=== PATIENT | female | born 1950 | race Caucasian/White ===

== ENCOUNTER → 2024-04-23 | Outpatient (CLI) | payer MEDICARE, BC ==
[2024-04-23 12:01] LABS: Prothrombin Time 10.9 sec (10.0-12.5)
[2024-04-23 12:08] LABS: Partial Thromboplastin Time 21.6 sec (22.0-30.0)
[2024-04-23 15:17] LABS: ALT 28 U/L (8-44); AST 24 U/L (13-35); Albumin 4.5 g/dL (3.8-4.9); Albumin/Globulin Ratio 1.73 Ratio (1.60-3.17); Alkaline Phosphatase 69 U/L (41-126); BUN/Creat Ratio 26.14 Ratio (12.00-20.00); Blood Urea Nitrogen 18.3 mg/dL (9.0-27.0); Calcium 9.3 mg/dL (8.7-10.3); Carbon Dioxide 25.3 mmol/L (21.6-31.8); Chloride 107 mmol/L (96-109); Globulin 2.6 g/dL (1.6-3.3); Glucose 90 mg/dL (70-110); Potassium 4.4 mmol/L (3.5-5.5); Sodium 143 mmol/L (135-145); Total Bilirubin 0.8 mg/dL (0.3-1.2); Total Protein 7.1 g/dL (6.2-8.2)
[2024-04-23 16:06] LABS: HCT 44.3 % (37.2-46.3); HGB 14.2 g/dL (12.0-15.0); MCH 29.4 pg (27.0-32.0); MCHC 32.1 g/dL (32.0-37.0); MCV 91.7 FL (80.0-97.0); Mean Platelet Volume 10.2 FL (9.5-12.2); NRBC Per 100 WBC 0 X 10*3/uL (0.00-0.01); Platelet Count 194 X 10*3/uL (140-440); RBC 4.83 X 10*6/uL (4.10-5.20); WBC 6.29 X 10*3/uL (4.50-10.00)
== END | disposition home or self-care (01) ==
LOC: LABPAT 10:34
PROVIDERS: ATTEND Orthopaedic Surgery
DX: Z22.322 Carrier or suspected carrier of Methicillin resistant Staphylococcus aureus
CPT/HCPCS: 36415; 80053; 83036; 85027; 85610; 85730; 86850; 86900; 86901; 87070

== ENCOUNTER 2024-05-02 09:51 | Inpatient (IN) | payer MEDICARE, BC ==
[2024-04-26 15:44] VITALS: BMI 45.1
[~2024-05-02 09:51] MED LIST: ONDANSETRON 4 MG/2 ML VIAL IVP PRN; TRANEXAMIC 1,000 MG/100ML-NACL 1,000 MG in SALINE 1 100ML.BAG IV PRN; TRANEXAMIC 1,000 MG/100ML-NACL 1,000 MG in SALINE 1 100ML.BAG IVPB PRN
[2024-05-02 11:20] LABS: Glucose,Whole Blood 112 mg/dL (70-110)
[2024-05-02] MEDS: ACETAMINOPHEN TAB 500 MG TAB PO PRN (11:21)
[2024-05-02] MEDS: DOCUSATE 100 MG CAP PO PRN (11:22)
[2024-05-02] MEDS: oxyCODONE ER 10 MG TAB.ER.12H PO PRN (11:22)
[2024-05-02] MEDS: ONDANSETRON 4 MG/2 ML VIAL IVP ONE (11:25)
[2024-05-02] MEDS: FAMOTIDINE 20 MG/2 ML VIAL IVP PRN (11:25)
[2024-05-02] MEDS: LACTATED RINGERS 1,000 ML IV SCH (11:26)
[2024-05-02] MEDS: KETOROLAC 15 MG/ML 1 ML VIAL IVP PRN (11:26)
[2024-05-02] MEDS: DEXAMETHASONE SOD PHOSPHATE 10 MG/ML 1 ML VIAL IV PRN (11:26)
[2024-05-02] MEDS: IV FLUID CONTINUATION 1,000 ML IV ONE ×2 (11:46→16:02)
[2024-05-02] MEDS: MIDAZOLAM 2 MG/2 ML VIAL IV ONE (11:50)
--- NOTE | 2024-05-02 12:02 | P.ANPRN ---
Procedure Note - Anesthesia - Nerve Block Performed Right Yobani Single Time Out Performed: Yes Date of Procedure: 05/02/24 Procedure Start Time: 11:49 Procedure Stop Time: 11:54 Location of Patient: PreOp Indication: Acute Post-Operative Pain, Analgesia, Requested by Surgeon Sedation Type: Sedate with meaningful contact maintained Preparation: Sterile Prep Position: Supine Catheter: None Needle Types: Pajunk Needle Gauge: 21 Ultrasound used to visualize needle placement: Yes Ultrasound used to observe medication spread: Yes Injectate: 0.5% Ropivacaine (see comment for volume) (Ropiv 20ml+Decadron 4mg. attemptX1.) Blood Aspirated: No Pain Paresthesia on Injection Noted: No Resistance on Injection: Normal Image Stored and Saved: Yes Events: Uneventful and Well Tolerated
[2024-05-02] MEDS ORDERED: NEOSTIGMINE 1 MG/ML 10 ML VIAL ONE (12:31)
[2024-05-02] MEDS ORDERED: DEXAMETHASONE SOD PHOSPHATE 4 MG/ML 1 ML VIAL ONE (12:31)
[2024-05-02] MEDS ORDERED: PROPOFOL 10 MG/ML 20 ML VIAL IV ONE (12:31)
[2024-05-02] MEDS ORDERED: fentaNYL (PF) 50 MCG/ML 2 ML AMP ONE (12:31)
[2024-05-02] MEDS ORDERED: SUCCINYLCHOLINE CHLORIDE 200 MG/10 ML VIAL IV ONE (12:31)
[2024-05-02] MEDS ORDERED: ROCURONIUM 10 MG/ML (5 ML VIAL) IV ONE (12:31)
[2024-05-02] MEDS ORDERED: GLYCOPYRROLATE 0.2 MG/ML 2 ML VIAL ONE (12:31)
[2024-05-02] MEDS ORDERED: TRANEXAMIC 1,000 MG/100ML-NACL PREMIX BAG ONE (12:31)
[2024-05-02] MEDS ORDERED: ROPIVACAINE 5 MG/ML 30 ML VIAL ONE (12:31)
[2024-05-02] MEDS ORDERED: LIDOCAINE 1% INJ 10MG/ML (20 ML MDV) ONE (12:31)
[2024-05-02] MEDS ORDERED: PHENYLEPHRINE 10 MG/ML VIAL ONE (12:31)
[2024-05-02] MEDS: ceFAZolin 3 GM in SODIUM CHLORIDE 0.9% 100 ML IVPB PRN (12:36)
[2024-05-02] MEDS: ROPIVACAINE/EPI/CLONIDINE/KET 50 ML SYRINGE MISCELLANE PRN (13:17)
--- NOTE | 2024-05-02 14:35 | P.OP ---
Date of Procedure: 05/02/24 Preoperative Diagnosis: 1. Severe right hip osteoarthritis 2. BMI 44.8 Postoperative Diagnosis: same Procedure(s) Performed: 1. Right direct anterior total hip arthroplasty 2. Application of negative pressure incisional wound VAC right hip, incision measuring 15 cm, less than 50 cm Implants: 1. Dennis Trident II Acetabular Cup, Size #52 2. Dennis Insignia Size # 6 Femoral Stem, High Offset 3. Dual Mobility OD 42 mm, ID 28 mm, -4 mm neck Anesthesia: STARR, regional Surgeon: Ashish Roldan Lemon Grower #1: Edilberto Uribe Estimated Blood Loss (ml): 300 IV fluids (ml): 1,000 Pathology: none sent Condition: stable Disposition: PACU Indications for Procedure: patient is a very pleasant 73-year-old female with a medical history significant for having a BMI of over 40 who presented to my office with severe right hip and groin pain. Her x-rays showed moderate arthritis. She was sent for a diagnostic right hip injection under fluoroscopy and had almost complete resolution of her symptoms. She also has a history of lumbar spine degenerative disease. Due to her response to a diagnostic intra-articular right hip injection, her physical exam with severe pain with any attempts at passive range of motion her x-ray findings her hip pain seems to be mostly coming from arthritis in the hip joint. The patient requested proceeding with a total hip replacement. She understands that she may still have discomfort if some of her symptoms are related to her lumbar spine. I had a long discussion with the patient in the office on the potential risks and complications of an elective total hip replacement through a direct anterior approach. Risks discussed include, but are certainly not limited to, risks from anesthesia, superficial infection requiring local wound care or antibiotics, deep leticia-prosthetic joint infection and the treatment required to eradicate infection, intraoperative fracture, postoperative periprosthetic fracture, damage to local blood vessels or nerves particularly the lateral femoral cutaneous nerve, delayed wound healing requiring local wound care or possibly surgical debridement, hip dislocation, leg length discrepancy, soft tissue irritation around the total hip implant such as iliopsoas tendinitis or trochanteric bursitis, wear and osteolysis from the implants, squeaking or audible noises, groin pain, thigh pain, heterotopic ossification, stiffness, as eptic loosening of the implants, dissatisfaction with surgical outcome, need for revision surgery, DVT, PE, swelling of the operative extremity, acute coronary event, stroke, failure to thrive, and possibly loss of life or limb. The patient understands that while these are the most common complications after an elective hip replacement there are certainly other less common complications possible. They were given ample time to ask questions regarding the potential complications of a hip replacement. Following our discussion the patient provided their verbal and written consent to go forward with an elective total hip replacement. Operative Findings: Severe right hip osteoarthritis with complete cartilage loss in the superior femoral head and diffuse cartilage loss of the acetabulum. Description of Procedure: The patient was identified in the preoperative holding area and the correct hip was marked with my initials. I reviewed the procedure and consent with the patient. All of their questions were answered. The patient was then brought back into the operating room by anesthesia. While on the [facility] anesthesia was administered by the anesthesia team. Preoperative antibiotics and tranexamic acid were also given. After the patient was under anesthesia I examined their ankles to determine their preoperative leg length discrepancy. The skin over the anterior aspect of the hip was shaved to remove hair over the site of planned incision. Both feet and ankles were padded with webril and boots for the Ennice were applied. The patient was then carefully transferred onto the Ennice table. A perineal post was immediately placed. The arms were placed on arm holders and were well-padded. Both boots were secured to the spars on the Ennice table. The patient was positioned so that the pelvis was centered over the post. Nonsterile drapes were applied. A timeout was performed identifying the correct patient, operative extremity, and procedure. At this point fluoroscopy was brought in to take preoperative images of the pelvis and operative hip. Using the standing AP pelvis from the office as a template, a comparable image was obtained with fluoroscopy. A metallic bar was used to create a bi-ischial line for use as a reference to leg length adjustments during the procedure. Global offset was also measured on both the operative and nonoperative leg. Fluoroscopy was then brought out and a pre-scrub using a chlorhexidine scrub brush was performed. The operative limb was then prepped and draped in the standard sterile fashion. An anterior longitudinal incision was made lateral and distal to the ASIS. The skin and subcutaneous tissues were incised sharply. The underlying tensor fascia was identified and incised in its midportion. The fascia was dissected free from the underlying muscle and the muscle belly was retracted. A blunt tipped cobra retractor was placed over the superior neck under the muscle fibers of the gluteus minimus. The deep enveloping fascia of the tensor was incised. The anterior leash of vessels were then identified and cauterized. The fascia between the rectus and the capsule was then incised and the pre-capsular fat was excised. A second Cobra was placed inferior to the neck. The interval between the rectus and iliocapsularis and the hip capsule was developed and a retractor was placed carefully over the anterior rim of the acetabulum. A T-shaped anterior capsulotomy was performed. The superior capsular leaflet was left in place in the inferior capsular flap was excised. The Cobra retractors were placed intracapsularly. We then made a femoral neck osteotomy according to preoperative and intraoperative templating and confirmed the level of the osteotomy using fluoroscopic imaging. The femoral head was removed, passed off to the back table, and sized. The superior capsular flap was excised. Retractors were placed circumferentially exposing the acetabulum. We then circumferentially debrided the acetabulum free of labrum and osteophytes. The pulvinar was removed to fully visualize the cotyloid fossa. We then sequentially reamed to achieve peripheral fit and excellent bleeding subchondral bone. The socket was thoroughly irrigated. The acetabular component was impacted into the appropriate position using fluoroscopy to guide version, inclination, and depth of insertion taking care to have a comparable image of the AP pelvis to the standing image taken in the office. An excellent press-fit was achieved and final position was confirmed using fluoroscopy. The press fit was augmented with bony cancellus dome screws. The liner was then impacted into the socket. Attention was then turned to the femur. The remnant dorsal lateral capsule was excised. The short external rotators were visible and protected. A bone hook was used to confirm appropriate translation of the trochanter away from the acetabulum. The leg was then extended and adducted and the bone hook was used to elevate the femur for broaching. A box osteotome and blunt tipped canal sound was then utilized to gain access to the femoral canal. We then sequentially broached the femur in appropriate anteversion until excellent torsional stability was achieved. The neck cut was brought flush to the trial broach with a calcar planar. A trial neck and head were then placed onto the broach and the hip was atraumatically reduced under direct visualization. External rotation to 90 was performed to assess stability. Fluoroscopy was brought in. An AP and lateral fluoroscopic image of the proximal femur was obtained to assess position and fill of the trial broach. An AP of the pelvis was then obtained and matched to the preoperative image taken. A bi-ischial bar was then placed and measurements were taken to assess changes in length and offset. The hip was then carefully dislocated, the proximal femur was exposed, and the trial implants were removed. The wound and proximal femur was thoroughly irrigated using sterile saline and pulsatile lavage. The final femoral implant was dispensed and gently tapped into place generating an excellent press-fit. The trunnion was cleansed and the final head was tapped into place to engage the Faria taper. The acetabulum was irrigated and visualized to be free of debris. The hip was carefully reduced. Stability was checked clinically with external rotation to 90 and there was no evidence of instability. Final fluoroscopic images were taken. The wound was then thoroughly irrigated and soaked with a dilute Betadine rinse for 3 minutes. 3 L of sterile saline was irrigated through the wound using pulsatile lavage. Local anesthetic cocktail was injected into the soft tissues around the surgical f ield. The wound was then closed in layers. An incisional wound VAC was placed over the closed incision to help lower the risk of delayed wound healing and surgical site infection. After connecting the wound VAC to it's power source, there was an excellent seal. The drapes were taken down and the patient was carefully transferred off of the Ennice table. Following removal of the boots the leg lengths felt acceptable. The patient was then taken to recovery room having tolerated the procedure well. Edilberto Uribe PA-C was required as a skilled program support assistant due to the complexity of the procedure for patient positioning, draping, exposure, retraction, closure of wound and application of dressing. . PLAN: The patient can weight-bear as tolerated on the operative extremity. 2 doses of postoperative antibiotics. DVT prophylaxis with aspirin 81 mg twice a day based on preoperative risk stratification. Physical therapy for gait training.
[2024-05-02] MEDS ORDERED: ONDANSETRON 4 MG/2 ML VIAL IVP PRN (14:36)
[2024-05-02] MEDS ORDERED: NALOXONE 0.4 MG/ML 1 ML VIAL IV PRN (14:36)
[2024-05-02] MEDS ORDERED: HYDROcodone/APAP 5-325MG 1 EACH TAB PO PRN (14:36)
[2024-05-02] MEDS ORDERED: MAGNESIUM HYDROXIDE 2,400 MG/30 ML CUP PO PRN (14:36)
[2024-05-02] MEDS: HYDROmorphone 0.5 MG/0.5 ML SYRINGE IVP PRN (15:13)
--- NOTE | 2024-05-02 15:19 | FL ---
EXAMINATION TYPE: FL guidance operating room, XR Hip Limited RT DATE OF EXAM: 05/02/2024 2:32 PM COMPARISON: Pre Operative Images if available both CT/MRI or plain film CLINICAL INDICATION: Female, 73 years old with history of Rt Hip-Ant; TECHNIQUE: FL guidance operating room, XR Hip Limited RT, multiple fluoroscopic images provided for p rocedure. Total fluoroscopy time: 40.1 seconds Total submitted images to PACS: 9 DAP: [id number] mGym2 Gycm2 uGym2 cGycm2 or equivalent. FINDINGS: Fluoroscopic images during internal fixation/arthroplasty demonstrate fixation hardware in appropriat e position. Hardware appears intact. No immediate complication identified. IMPRESSION: 1. No evidence for intraoperative complication. 2. Please see the operative/procedural note for further details. [facility], , 05/02/2024 3:17 PM
[2024-05-02 15:57] LABS: Glucose,Whole Blood 189 mg/dL (70-110)
[2024-05-02 16:26] LABS: Glucose,Whole Blood 211 mg/dL (70-110)
[2024-05-02] MEDS ORDERED: LOPERAMIDE 2 MG CAP PO PRN (16:53)
[2024-05-02] MEDS ORDERED: DEXTROSE 50% SYRINGE 50 ML IVP PRN ×2 (17:01)
[2024-05-02] MEDS: SODIUM CHLORIDE 0.9% 1,000 ML IV SCH (17:05)
[2024-05-02] MEDS: INSULIN ASPART (NovoLOG) 100 UNIT/ML VIAL SQ SCH (17:32)
[2024-05-02] MEDS: HYDROcodone/APAP 10-325MG 1 EACH TAB PO PRN (17:44)
[2024-05-02 20:39] LABS: Glucose,Whole Blood 207 mg/dL (70-110)
[2024-05-02] MEDS: metFORMIN 500 MG TAB PO SCH (20:59)
[2024-05-02] MEDS: ATORVASTATIN 20 MG TAB PO SCH (20:59)
[2024-05-02] MEDS: SENNOSIDES-DOCUSATE SODIUM 1 EACH TAB PO SCH (20:59)
[2024-05-02] MEDS: MAGNESIUM OXIDE 400 MG TAB PO SCH (21:00)
[2024-05-02] MEDS: amLODIPine 10 MG TAB PO SCH (21:00)
[2024-05-02] MEDS ORDERED: TIMOLOL 0.5% OPHTH SOLN (PF) 0.2 ML DROPERETTE BOTH EYES SCH (21:00)
[2024-05-02] MEDS: CYCLOBENZAPRINE 10 MG TAB PO PRN (21:00)
[2024-05-02] MEDS: ASPIRIN 81 MG PO SCH ×2 (21:00→21:02)
[2024-05-02] MEDS: glipiZIDE 10 MG TAB PO SCH (21:00)
[2024-05-02] MEDS: ceFAZolin 3 GM in SODIUM CHLORIDE 0.9% 100 ML IVPB SCH (21:03)
[2024-05-02] MEDS: TIMOLOL 0.5% OPHTH DROPS 5 ML BTL BOTH EYES SCH (23:38)
--- NOTE | 2024-05-03 03:04 | CONS ---
CONSULTATION HISTORY OF PRESENT ILLNESS: A 73-year-old white female, history of hypertension, obesity, GERD, dyslipidemia, diabetes mellitus, breast cancer, deafness, was admitted for surgery for her right hip. She has some pain lifting her right leg out of bed. Otherwise, she is doing fine. She has been up to the bathroom already x1. ALLERGIES: Levaquin. PAST SURGICAL HISTORY: Cholecystectomy, hernia, bilateral knees, breast carcinoma, cyst on the liver. FAMILY HISTORY: Hypertension in the family. Never smoked. Not . REVIEW OF SYSTEMS: A 14-point review of systems otherwise negative. PHYSICAL EXAMINATION: VITAL SIGNS: Blood pressure 102/85. GENERAL: Alert, and oriented x3. HEENT: Normocephalic, atraumatic. NECK: Supple. CARDIAC: Regular rate and rhythm. LUNGS: Clear. ABDOMEN: Soft, nontender. EXTREMITIES: Right hip has a bandage on it. Some mild swelling and firmness below the wound. Continue current treatment. No chest pain or shortness of breath. Follow up in the next 24 to 48 hours. MMODL / IJN: [id number] /
[2024-05-03] MEDS: HYDROmorphone 0.5 MG/0.5 ML SYRINGE IVP PRN (04:21)
[2024-05-03 06:42] LABS: Glucose,Whole Blood 142 mg/dL (70-110)
[2024-05-03] MEDS ORDERED: NON FORMULARY DRUG (Ubidecarenone [Co Q-10] 400 MG Capsule) PO SCH (09:00)
--- NOTE | 2024-05-03 09:05 | P.PN ---
Subjective Progress Note Date: 05/03/24 Principal diagnosis: Status post right direct anterior total hip arthroplasty for right hip osteoarthritis on 05/02/[address] Roldan No acute events overnight. Patient was examined at bedside this morning. Patient states they have mild pain in the right thigh. Patient has been up to the bathroom multiple times, and up to the chair. Patient has had difficulty ambulating up out of bed and has required assistance. Objective - Vital Signs Vital signs: Vital Signs Temp 97.7 F 05/03/24 07:21 Pulse 73 05/03/24 07:21 Resp 18 05/03/24 07:21 BP 121/70 05/03/24 07:21 Pulse Ox 93 L 05/03/24 07:21 FiO2 Intake & Output 05/02/24 05/03/24 05/03/24 18:59 06:59 18:59 Intake Total 1200 Output Total 300 Balance 900 Weight 125.8 kg Intake: IV 1200 Output: Estimated Blood Loss 300 Other: Voiding Method Toilet # Voids 2 - Exam Patient is resting comfortably in a chair. No apparent distress. They are awake, alert and able to answer questions. On inspection the surgical hip has a wound VAC, it is intact, there is no drainage or strikethrough. The skin surrounding the VAC is free of erythema. There is mild swelling in the operative thigh. Operative femoral nerve function is intact. The patient is able to actively plantarflex and dorsiflex their operative ankle and toes. Thei r operative foot is pink and warm to touch. - Labs CBC & Chem 7: 05/02/24 11:35 Labs: Abnormal Lab Results - Last 24 Hours (Table) 05/02/24 05/02/24 05/02/24 Range/Units 11:18 15:54 16:24 POC Glucose (mg/dL) 112 H 189 H 211 H (70-110) mg/dL 05/02/24 05/03/24 Range/Units 20:30 06:41 POC Glucose (mg/dL) 207 H 142 H (70-110) mg/dL Assessment and Plan Assessment: Postop day #1 status post right direct anterior total hip arthroplasty for right hip osteoarthritis on 05/02/[address] Roldan Plan: Weight-bear as tolerated with walker on the operative extremity. Leave surgical wound VAC. Continue to manage pain. Patient has had difficulty ambulating today, and has required assistance to get out of bed, plan to keep tonight in hospital, will see how patient does tomorrow and make dispo plan then. We appreciate medicine for medical management.
[2024-05-03] MEDS: hydroCHLOROthiazide 25 MG TAB PO SCH (09:24)
[2024-05-03] MEDS: PANTOPRAZOLE 40 MG TABLET PO SCH (09:24)
[2024-05-03] MEDS: LOSARTAN 50 MG TAB PO SCH (09:24)
[2024-05-03] MEDS: POTASSIUM CHLORIDE ER 10 MEQ TAB.ER.PRT PO SCH (09:24)
[2024-05-03] MEDS: MULTIVITAMINS, THERA 1 EACH TAB PO SCH (09:24)
[2024-05-03] MEDS: CALCIUM CARB-VIT D 500 MG-5 MCG TAB PO SCH (09:25)
[2024-05-03] MEDS: ASCORBIC ACID 500 MG TAB PO SCH (09:25)
[2024-05-03] MEDS: FERROUS SULFATE 325 MG TAB PO SCH (09:25)
[2024-05-03] MEDS: CHOLECALCIFEROL 125 MCG (5000 IU) TABLET PO SCH (09:25)
[2024-05-03] MEDS: CYANOCOBALAMIN 500 MCG TAB PO SCH (09:25)
[2024-05-03 09:35] LABS: Basophils # (A) 0.01 X 10*3/uL (0.00-0.10); Basophils % (A) 0.1 %; Eosinophils # (A) 0.01 X 10*3/uL (0.04-0.35); Eosinophils % (A) 0.1 %; HCT 34.6 % (37.2-46.3); HGB 11.5 g/dL (12.0-15.0); Lymphocytes # (A) 0.82 X 10*3/uL (0.90-5.00); Lymphocytes % (A) 8.4 %; MCH 30.1 pg (27.0-32.0); MCHC 33.2 g/dL (32.0-37.0); MCV 90.6 FL (80.0-97.0); Mean Platelet Volume 11.1 FL (9.5-12.2); Monocytes # (A) 0.73 X 10*3/uL (0.20-1.00); Monocytes % (A) 7.5 %; NRBC Per 100 WBC 0 X 10*3/uL (0.00-0.01); Neutrophils # (A) 8.13 X 10*3/uL (1.80-7.70); Neutrophils % (A) 83.4 %; Platelet Count 157 X 10*3/uL (140-440); RBC 3.82 X 10*6/uL (4.10-5.20); RDW 14.2 % (11.5-14.5); WBC 9.75 X 10*3/uL (4.50-10.00)
[2024-05-03] MEDS ORDERED: MULTIVITAMINS, THERA 1 EACH TAB PO SCH (12:00)
[2024-05-03] MEDS: metFORMIN 500 MG TAB PO SCH (12:10)
[2024-05-03 12:16] LABS: Glucose,Whole Blood 156 mg/dL (70-110)
[2024-05-03 16:31] LABS: Glucose,Whole Blood 124 mg/dL (70-110)
[2024-05-03 20:19] LABS: Glucose,Whole Blood 169 mg/dL (70-110)
[2024-05-04] MEDS: hydrOXYzine pamoate 25 MG CAP PO PRN (04:49)
[2024-05-04 06:30] LABS: Glucose,Whole Blood 140 mg/dL (70-110)
--- NOTE | 2024-05-04 09:58 | P.PN ---
Subjective Progress Note Date: 05/04/24 Principal diagnosis: Status post right direct anterior total hip arthroplasty for right hip osteoarthritis on 05/02/[address] Roldan No acute events overnight. Patient was examined at bedside this morning. Patient states they have mild pain in the right thigh. Patient has been up to the bathroom multiple times, and up to the chair. Patient worked with physical therapy and it is uncertain if she will qualify for short acute rehab. Patient has had difficulty ambulating up out of bed and has required assistance. Objective - Vital Signs Vital signs: Vital Signs Temp 99.6 F 05/04/24 08:33 Pulse 84 05/04/24 08:33 Resp 20 05/04/24 08:33 BP 117/72 05/04/24 08:33 Pulse Ox 92 L 05/04/24 08:33 FiO2 Intake & Output 05/03/24 05/04/24 05/04/24 18:59 06:59 18:59 Output Total 1200 Balance -1200 Output: Urine 1200 Other: # Voids 3 1 1 - Exam Patient is resting comfortably in a chair. No apparent distress. They are awake, alert and able to answer questions. On inspection the surgical hip has a wound VAC, it is intact, there is no drainage or strikethrough. The skin surrounding the VAC is free of erythema. There is mild swelling in the operative thigh. Operative femoral nerve function is intact. The patient is able to actively plantarflex and dorsiflex their operative ankle and toes. Their operative foot is pink and warm to touch. - Labs CBC & Chem 7: 05/03/24 04:04 05/02/24 11:35 Labs: Abnormal Lab Results - Last 24 Hours (Table) 05/03/24 05/03/24 05/03/24 Range/Units 04:04 12:14 16:29 POC Glucose (mg/dL) 156 H 124 H (70-110) mg/dL Hemoglobin A1c 6.2 H (<=6.0) % 05/03/24 05/04/24 Range/Units 20:16 06:28 POC Glucose (mg/dL) 169 H 140 H (70-110) mg/dL Hemoglobin A1c (<=6.0) % Assessment and Plan Assessment: Postop day #2 status post right direct anterior total hip arthroplasty for right hip osteoarthritis on 05/02/[address] Roldan Plan: Weight-bear as tolerated with walker on the operative extremity. Leave surgical wound VAC. Continue to manage pain. From from discussing case with nursing staff and case monitor, it is uncertain if patient will qualify for short acute rehab. Will have patient work with physical therapy again today. Plan to keep tonight in hospital, will see how patient does tomorrow and make further dispo plan then. We appreciate medicine for medical management.
[2024-05-04 11:12] LABS: Glucose,Whole Blood 146 mg/dL (70-110)
--- NOTE | 2024-05-04 11:24 | XR ---
EXAMINATION TYPE: XR chest 1V DATE OF EXAM: 05/04/2024 COMPARISON: NONE HISTORY: Hypoxia TECHNIQUE: Single frontal view of the chest is obtained. FINDINGS: There is no focal air space opacity, pleural effusion, or pneumothorax seen. The cardiac silhouette size is within normal limits. The osseous structures are intact. IMPRESSION: No acute process. [facility], Workstation: [facility], 05/04/2024 11:21 AM
--- NOTE | 2024-05-04 16:08 | P.PN ---
Subjective Progress Note Date: 05/04/24 Patient is evaluated in follow-up on the medical floor she is postoperative day #1 right hip total arthroplasty. Patient was noted to have episodes of hypoxia with saturations of 92 to 93% chest x-ray was completed which is negative for any acute process and patient states that she is using her incentive spirometer at the bedside. Acute complaints at this time and is currently pending discharge to subacute rehab which will happen on Tuesday as she does require 3 nights of inpatient hospital stay. Review of Systems Constitutional: Denied any fatigue denied any fever. Cardio vascular: denied any chest pain, palpitations Gastrointestinal: denied any nausea, vomiting, diarrhea Pulmonary: Denied any shortness of breath cough Neurologic denied any new focal deficits All inpatient medications were reviewed and appropriate changes in these medications as dictated in the interval history and assessment and plan. PHYSICAL EXAMINATION: GENERAL: The patient is alert and oriented x3, not in any acute distress. Well developed, well nourished. HEENT: Pupils are round and equally reacting to light. EOMI. No scleral icterus. No conjunctival pallor. Normocephalic, atraumatic. No pharyngeal erythema. No thyromegaly. CARDIOVASCULAR: S1 and S2 present. No murmurs, rubs, or gallops. PULMONARY: Chest is clear to auscultation, no wheezing or crackles. ABDOMEN: Soft, nontender, nondistended, normoactive bowel sounds. No palpable organomegaly. MUSCULOSKELETAL: No joint swelling or deformity. EXTREMITIES: No cyanosis, clubbing, or pedal edema. NEUROLOGICAL: Gross neurological examination did not reveal any focal deficits. SKIN: No rashes. Assessment Postoperative day 1 right hip total arthroplasty Hypertension Diabetes mellitus type 2 Gastroesophageal reflux disease Dyslipidemia History of breast insert GI prophylaxis DVT prophylaxis as per primary Full code Continue all same home medications continue to encourage incentive spirometer 10 times an hour while awake. Patient is currently pending discharge to subacute rehab as mentioned she does require 3 days of inpatient hospital stay and discharge will be on Tuesday. The impression and plan of care has been dictated by Suri Huntley, Nurse Practitioner as directed. Dr. Davis MD I have performed a history and physical examination and medical decision making of this patient, discussed the same with the dictator, and agree with the dictators assessment and plan as written, documented as a scribe. Based on total visit time, I have performed more than 50% of this visit. Objective - Vital Signs Vital signs: Vital Signs Temp 99.6 F 05/04/24 08:33 Pulse 84 05/04/24 08:33 Resp 20 05/04/24 08:33 BP 117/72 05/04/24 08:33 Pulse Ox 92 L 05/04/24 08:33 FiO2 Intake & Output 05/03/24 05/04/24 05/04/24 18:59 06:59 18:59 Output Total 1200 Balance -1200 Output: Urine 1200 Other: # Voids 3 1 1 - Labs CBC & Chem 7: 05/03/24 04:04 05/02/24 11:35 Labs: Abnormal Lab Results - Last 24 Hours (Table) 05/03/24 05/03/24 05/03/24 Range/Units 04:04 12:14 16:29 POC Glucose (mg/dL) 156 H 124 H (70-110) mg/dL Hemoglobin A1c 6.2 H (<=6.0) % 05/03/24 05/04/24 Range/Units 20:16 06:28 POC Glucose (mg/dL) 169 H 140 H (70-110) mg/dL Hemoglobin A1c (<=6.0) % Assessment and Plan Time with Patient: Less than 30
[2024-05-04 16:53] LABS: Glucose,Whole Blood 241 mg/dL (70-110)
[2024-05-04 20:19] LABS: Glucose,Whole Blood 208 mg/dL (70-110)
[2024-05-05 06:47] LABS: Glucose,Whole Blood 119 mg/dL (70-110)
--- NOTE | 2024-05-05 08:24 | P.PN ---
Subjective well although she is somewhat frustrated with her progress. She states that she has pain and burning in her right leg. She also says she feels weak and is uncomfortable. Acute events per nursing thinks the patient is doing well. Objective - Vital Signs Vital signs: Vital Signs Temp 99.7 F H 05/05/24 07:23 Pulse 89 05/05/24 07:23 Resp 17 05/05/24 07:23 BP 131/76 05/05/24 07:23 Pulse Ox 95 05/05/24 07:23 FiO2 Intake & Output 05/04/24 05/05/24 05/05/24 18:59 06:59 18:59 Other: Voiding Method Toilet Toilet # Voids 1 2 - Exam he is sitting up at bedside in the chair. She is alert and able to answer questions. She is in no obvious distress. There is an incisional wound VAC over the anterior aspect of the right hip with good seal. Her thigh is soft. Femoral nerve function is intact as she is able to actively extend her knee. She is able to actively plantarflex and dorsiflex her ankle and her toes. - Labs CBC & Chem 7: 05/03/24 04:04 05/02/24 11:35 Labs: Abnormal Lab Results - Last 24 Hours (Table) 05/04/24 05/04/24 05/04/24 Range/Units 11:11 16:52 20:18 POC Glucose (mg/dL) 146 H 241 H 208 H (70-110) mg/dL 05/05/24 Range/Units 06:46 POC Glucose (mg/dL) 119 H (70-110) mg/dL Assessment and Plan Assessment: postoperative day #3 status post right direct anterior total hip arthroplasty Morbid obesity with BMI 45 Plan: Overall the patient is doing well. I reassured her that she is improving and looks to be doing well. We discussed the role that her morbid obesity place in her recovery. She seems to understand this. I'd recommend continued mobilization with physical therapy. DVT prophylaxis with aspirin 81 mg twice a day. Leave wound VAC in place. We'll start her on doxycycline due to her o besity for low-dose antibiotic suppression. Plan on discharge to rehab on Tuesday.
[2024-05-05] MEDS: DOXYCYCLINE 100 MG CAP PO SCH (09:16)
[2024-05-05 10:19] LABS: Basophils # (A) 0.06 X 10*3/uL (0.00-0.10); Basophils % (A) 0.7 %; Eosinophils % (A) 1.1 %; HCT 32.9 % (37.2-46.3); HGB 10.6 g/dL (12.0-15.0); Lymphocytes # (A) 2.37 X 10*3/uL (0.90-5.00); Lymphocytes % (A) 27.1 %; MCH 29.4 pg (27.0-32.0); MCHC 32.2 g/dL (32.0-37.0); MCV 91.4 FL (80.0-97.0); Mean Platelet Volume 10.6 FL (9.5-12.2); Monocytes # (A) 1.04 X 10*3/uL (0.20-1.00); Monocytes % (A) 11.9 %; NRBC Per 100 WBC 0 X 10*3/uL (0.00-0.01); Neutrophils # (A) 5.12 X 10*3/uL (1.80-7.70); Neutrophils % (A) 58.7 %; Platelet Count 184 X 10*3/uL (140-440); RDW 14.6 % (11.5-14.5); WBC 8.73 X 10*3/uL (4.50-10.00)
[2024-05-05 11:52] LABS: Glucose,Whole Blood 123 mg/dL (70-110)
--- NOTE | 2024-05-05 13:59 | P.PN ---
Subjective Progress Note Date: 05/05/24 Patient is evaluated in follow-up on the medical floor she is postoperative day #1 right hip total arthroplasty. Patient was noted to have episodes of hypoxia with saturations of 92 to 93% chest x-ray was completed which is negative for any acute process and patient states that she is using her incentive spirometer at the bedside. Acute complaints at this time and is currently pending discharge to subacute rehab which will happen on Tuesday as she does require 3 nights of inpatient hospital stay. 04/05/2024 Patient is postoperative day #2 right total hip arthroplasty. She is not having any cute complaints overnight. Chest x-ray was completed with no acute findings. Patient is on room air. Wound VAC in place to the right thigh incision. Patient is currently pending discharge to subacute rehab which will not be until Tuesday. Review of Systems Constitutional: Denied any fatigue denied any fever. Cardio vascular: denied any chest pain, palpitations Gastrointestinal: denied any nausea, vomiting, diarrhea Pulmonary: Denied any shortness of breath cough Neurologic denied any new focal deficits All inpatient medications were reviewed and appropriate changes in these medications as dictated in the interval history and assessment and plan. PHYSICAL EXAMINATION: GENERAL: The patient is alert and oriented x3, not in any acute distress. Well developed, well nourished. HEENT: Pupils are round and equally reacting to light. EOMI. No scleral icterus. No conjunctival pallor. Normocephalic, atraumatic. No pharyngeal erythema. No thyromegaly. CARDIOVASCULAR: S1 and S2 present. No murmurs, rubs, or gallops. PULMONARY: Chest is clear to auscultation, no wheezing or crackles. ABDOMEN: Soft, nontender, nondistended, normoactive bowel sounds. No palpable organomegaly. MUSCULOSKELETAL: No joint swelling or deformity. EXTREMITIES: No cyanosis, clubbing, or pedal edema. NEUROLOGICAL: Gross neurological examination did not reveal any focal deficits. SKIN: No rashes. Assessment Postoperative day 2 right hip total arthroplasty Hypertension Diabetes mellitus type 2 Gastroesophageal reflux disease Dyslipidemia History of breast insert GI prophylaxis DVT prophylaxis as per primary Full code Continue all same home medications continue to encourage incentive spirometer 10 times an hour while awake. Patient is currently pending discharge to subacute rehab as mentioned she does require 3 days of inpatient hospital stay and discharge will be on Tuesday. The impression and plan of care has been dictated by Suri Huntley Nurse Practitioner as directed. Dr. Davis MD I have performed a history and physical examination and medical decision making of this patient, discussed the same with the dictator, and agree with the dictators assessment and plan as written, documented as a scribe. Based on total visit time, I have performed more than 50% of this visit. Objective - Vital Signs Vital signs: Vital Signs Temp 99.7 F H 05/05/24 07:23 Pulse 89 05/05/24 07:23 Resp 17 05/05/24 07:23 BP 131/76 05/05/24 07:23 Pulse Ox 95 05/05/24 07:23 FiO2 Intake & Output 05/04/24 05/05/24 05/05/24 18:59 06:59 18:59 Other: Voiding Method Toilet Toilet # Voids 1 2 - Labs CBC & Chem 7: 05/05/24 02:28 05/02/24 11:35 Labs: Abnormal Lab Results - Last 24 Hours (Table) 05/04/24 05/04/24 05/04/24 Range/Units 11:11 16:52 20:18 POC Glucose (mg/dL) 146 H 241 H 208 H (70-110) mg/dL 05/05/24 Range/Units 06:46 POC Glucose (mg/dL) 119 H (70-110) mg/dL Assessment and Plan Time with Patient: Less than 30
[2024-05-05 16:51] LABS: Glucose,Whole Blood 129 mg/dL (70-110)
[2024-05-05 20:18] LABS: Glucose,Whole Blood 189 mg/dL (70-110)
[2024-05-06 06:57] LABS: Glucose,Whole Blood 129 mg/dL (70-110)
--- NOTE | 2024-05-06 08:30 | P.PN ---
Subjective no acute events. The patient continues to complain of pain in her right hip and leg but it is improving slowly. Objective - Vital Signs Vital signs: Vital Signs Temp 99.5 F 05/06/24 00:54 Pulse 88 05/06/24 00:54 Resp 16 05/06/24 00:54 BP 113/67 05/06/24 00:54 Pulse Ox 96 05/06/24 00:54 FiO2 Intake & Output 05/05/24 05/06/24 05/06/24 18:59 06:59 18:59 Output Total 200 Balance -200 Output: Urine 200 Other: Voiding Method Toilet # Voids 2 # Bowel Movements 1 - Exam patient is sitting up at bedside. She is alert and able to answer questions. A dressing over her hip is intact. Femoral nerve function is intact. She is able to actively plantar flex and dorsiflex her ankle and her toes. - Labs CBC & Chem 7: 05/05/24 02:28 05/02/24 11:35 Labs: Abnormal Lab Results - Last 24 Hours (Table) 05/05/24 05/05/24 05/05/24 Range/Units 02:28 11:50 16:49 RBC 3.60 L (4.10-5.20) X 10*6/uL Hgb 10.6 L (12.0-15.0) g/dL Hct 32.9 L (37.2-46.3) % RDW 14.6 H (11.5-14.5) % Monocytes # 1.04 H (0.20-1.00) X 10*3/uL POC Glucose (mg/dL) 123 H 129 H (70-110) mg/dL 05/05/24 05/06/24 Range/Units 20:17 06:55 RBC (4.10-5.20) X 10*6/uL Hgb (12.0-15.0) g/dL Hct (37.2-46.3) % RDW (11.5-14.5) % Monocytes # (0.20-1.00) X 10*3/uL POC Glucose (mg/dL) 189 H 129 H (70-110) mg/dL Assessment and Plan Assessment: postoperative day #4 status post right direct anterior total hip arthroplasty, morbid obesity Plan: continue treatment as outlined. Continue to mobilize out of bed into a chair. Plan for discharge to subacute rehab tomorrow.
[2024-05-06 11:44] LABS: Glucose,Whole Blood 165 mg/dL (70-110)
--- NOTE | 2024-05-06 16:02 | US ---
EXAMINATION TYPE: US venous doppler duplex LE RT DATE OF EXAM: 05/06/2024 1:09 PM Exam done portable COMPARISON: NONE CLINICAL INDICATION: Female, 73 years old with history of right leg pain, swelling; TECHNIQUE: The lower extremity deep venous system is examined utilizing real time linear array sonog heber with graded compression, color doppler sonography, and spectral doppler. SIDE PERFORMED: Right FINDINGS: VESSELS IMAGED: Common Femoral Vein Deep Femoral Vein Greater Saphenous Vein * Femoral Vein Popliteal Vein Small Saphenous Vein * Proximal Calf Veins (* superficial vessels) Right Leg: Appears negative for DVT Grayscale, color doppler, spectral doppler imaging performed of the deep veins of the lower extremiti es. IMPRESSION: No evidence of deep vein thrombosis of the right lower extremity. [facility], , 05/06/2024 3:59 PM
[2024-05-06 16:41] LABS: Glucose,Whole Blood 144 mg/dL (70-110)
[2024-05-06] MEDS: NYSTATIN 100,000UNIT/GM CREAM 30 GM TUBE TOPICAL SCH (18:49)
[2024-05-06 20:57] LABS: Glucose,Whole Blood 144 mg/dL (70-110)
[2024-05-07 03:04] VITALS: PULSE 75
--- NOTE | 2024-05-07 05:55 | P.PN ---
Subjective Progress Note Date: 05/06/24 Patient is evaluated in follow-up on the medical floor she is postoperative day #1 right hip total arthroplasty. Patient was noted to have episodes of hypoxia with saturations of 92 to 93% chest x-ray was completed which is negative for any acute process and patient states that she is using her incentive spirometer at the bedside. Acute complaints at this time and is currently pending discharge to subacute rehab which will happen on Tuesday as she does require 3 nights of inpatient hospital stay. 05/05/2024 Patient is postoperative day #2 right total hip arthroplasty. She is not having any cute complaints overnight. Chest x-ray was completed with no acute findings. Patient is on room air. Wound VAC in place to the right thigh incision. Patient is currently pending discharge to subacute rehab which will not be until Tuesday. 05/06/2024 Patient is seen in follow-up today status post right total hip arthroplasty. Patient having significant weakness and pain in patient reports swelling in the right lower extremity. Patient is afebrile with no reports of chest pain or shortness of breath. Patient does report significant irritation in her groin folds and will add nystatin cream. According to Medicare guidelines, patient requires 3 night hospitalization. Plan is for discharge to [facility] for continued strength and mobility on Tuesday. Review of Systems Constitutional: Denied any fatigue denied any fever. Cardio vascular: denied any chest pain, palpitations Gastrointestinal: denied any nausea, vomiting, diarrhea Pulmonary: Denied any shortness of breath cough Neurologic denied any new focal deficits, reports of being weak with continued right hip pain All inpatient medications were reviewed and appropriate changes in these medications as dictated in the interval history and assessment and plan. PHYSICAL EXAMINATION: GENERAL: The patient is alert and oriented x3, not in any acute distress. Well developed, well nourished. Elderly appearing, morbidly obese HEENT: Pupils are round and equally reacting to light. EOMI. No scleral icterus. No conjunctival pallor. Normocephalic, atraumatic. No pharyngeal erythema. No thyromegaly. CARDIOVASCULAR: S1 and S2 present. No murmurs, rubs, or gallops. PULMONARY: Chest is clear to auscultation, no wheezing or crackles. ABDOMEN: Soft, nontender, nondistended, normoactive bowel sounds. No palpable organomegaly. MUSCULOSKELETAL: No joint swelling or deformity. EXTREMITIES: No cyanosis, clubbing, or pedal edema. Right surgical hip dressing is dry and intact NEUROLOGICAL: Gross neurological examination did not reveal any focal deficits. Diffusely weak SKIN: No rashes. Assessment: Postoperative day 2 right hip total arthroplasty Hypertension Diabetes mellitus type 2 Gastroesophageal reflux disease Dyslipidemia History of breast cancer Morbid obesity with a BMI of 44.8 GI prophylaxis DVT prophylaxis as per primary Full code Plan: Continue all same home medications continue to encourage incentive spirometer 10 times an hour while awake. Patient is currently pending discharge to subacute rehab as mentioned she does require 3 days of inpatient hospital stay and discharge will be on Tuesday. Patient reporting some right hip pain and swelling, venous Doppler was negative for DVT Patient also reporting some irritation in her groin folds and will add nystatin cream Patient is medically stable once cleared by orthopedics for discharge to [facility]. We will continue to follow with orthopedics during hospitalization. Thank you kindly for this consultation. The impression and plan of care has been dictated by Lissy Ramos, Nurse Practitioner as directed. Dr. Davis MD I have performed a history and physical examination and medical decision making of this patient, discussed the same with the dictator, and agree with the dictators assessment and plan as written, documented as a scribe. Based on total visit time, I have performed more than 50% of this visit. Objective - Vital Signs Vital signs: Vital Signs Temp 98.3 F 05/06/24 07:32 Pulse 84 05/06/24 07:32 Resp 17 05/06/24 07:32 BP 133/72 05/06/24 07:32 Pulse Ox 93 L 05/06/24 07:32 FiO2 Intake & Output 05/05/24 05/06/24 05/06/24 18:59 06:59 18:59 Output Total 200 Balance -200 Output: Urine 200 Other: Voiding Method Toilet # Voids 2 # Bowel Movements 1 - Labs CBC & Chem 7: 05/05/24 02:28 05/02/24 11:35 Labs: Abnormal Lab Results - Last 24 Hours (Table) 05/05/24 05/05/24 05/05/24 Range/Units 02:28 11:50 16:49 RBC 3.60 L (4.10-5.20) X 10*6/uL Hgb 10.6 L (12.0-15.0) g/dL Hct 32.9 L (37.2-46.3) % RDW 14.6 H (11.5-14.5) % Monocytes # 1.04 H (0.20-1.00) X 10*3/uL POC Glucose (mg/dL) 123 H 129 H (70-110) mg/dL 05/05/24 05/06/24 Range/Units 20:17 06:55 RBC (4.10-5.20) X 10*6/uL Hgb (12.0-15.0) g/dL Hct (37.2-46.3) % RDW (11.5-14.5) % Monocytes # (0.20-1.00) X 10*3/uL POC Glucose (mg/dL) 189 H 129 H (70-110) mg/dL
[2024-05-07 06:41] LABS: Glucose,Whole Blood 110 mg/dL (70-110)
[2024-05-07 07:23] VITALS: BP 142/76; RESP 18; TEMP 97.6
--- NOTE | 2024-05-07 07:30 | P.PN ---
Subjective Progress Note Date: 05/07/24 Principal diagnosis: Status post right direct anterior total hip arthroplasty for right hip osteoarthritis on 05/02/[address] Roldan No acute events overnight. Patient was examined at bedside this morning. Patient states they have mild pain in the right thigh. Patient has been up to the bathroom multiple times, and up to the chair. Objective - Vital Signs Vital signs: Vital Signs Temp 97.6 F 05/07/24 07:22 Pulse 75 05/07/24 07:22 Resp 18 05/07/24 07:22 BP 142/76 05/07/24 07:22 Pulse Ox 94 L 05/07/24 07:22 FiO2 Intake & Output 05/06/24 05/07/24 05/07/24 18:59 06:59 18:59 Other: Voiding Method Toilet # Voids 3 - Exam Patient is resting comfortably in bed, in no apparent distress. They are awake, alert and able to answer questions. On inspection the surgical hip has a wound VAC, it is intact, there is no drainage or strikethrough. The skin surrounding the VAC is free of erythema. There is mild swelling in the operative thigh. Operative femoral nerve function is intact. The patient is able to actively plantarflex and dorsiflex their operative ankle and toes. Their operative foot is pink and warm to touch. - Labs CBC & Chem 7: 05/05/24 02:28 05/02/24 11:35 Labs: Abnormal Lab Results - Last 24 Hours (Table) 05/06/24 05/06/24 05/06/24 Range/Units 11:43 16:40 20:55 POC Glucose (mg/dL) 165 H 144 H 144 H (70-110) mg/dL Assessment and Plan Assessment: Postop day #5 status post right direct anterior total hip arthroplasty for right hip osteoarthritis on 05/02/[address] Roldan Plan: Weight-bear as tolerated with walker on the operative extremity. Leave surgical wound VAC. Patient's pain has been controlled with oral [place]. We appreciate medicine for medical management. Plan discharge to short acute rehab facility later today.
--- NOTE | 2024-05-07 08:19 | P.DS ---
Providers Date of admission: 05/03/24 10:29 Attending physician: Ashish Roldan Consults: 05/02/24 16:26 Consult Physician Routine Consulting Provider: Frank Lara Consult Reason/Comments: medical management Do you want consulting provider notified?: Yes Primary care physician: Magali Sr MD Hospital Course: On 05/02/2024 patient presented to preop for scheduled right total hip arthroplasty for severe right hip osteoarthritis that failed conservative management for over 6 months. Patient tolerated the procedure well. Patient was tolerated to the orthopedic floor. Patient worked with physical therapy. Patient had difficulty ambulating and continued to have difficulty ambulating on their own due to lack of strength. Patient was examined at bedside this morning, surgical dressing is done with the wound VAC that is intact. Patient will be transferred to a short acute rehab facility. Assessment: Status post right total hip arthroplasty on 05/02/2024 for severe right hip osteoarthritis by Dr. Roldan Plan - Discharge Summary Discharge Rx Participant: Yes New Discharge Prescriptions: New Aspirin 81 mg PO BID #60 tab Docusate [Colace] 100 mg PO BID #60 capsule HYDROcodone/APAP 5-325MG [[place] 5] 1 - 2 each PO Q6HR PRN #48 tab PRN Reason: Pain Ondansetron [Zofran] 4 mg PO Q6HR PRN #30 tab PRN Reason: Nausea Doxycycline Monohydrate 100 mg PO BID #28 cap Diclofenac Sodium [Voltaren] 75 mg PO BID #60 tab No Action Timolol (Unknown Dose) 1 drop BOTH EYES BID amLODIPine BESYLATE 10 mg PO HS Losartan Potassium [Cozaar] 100 mg PO QAM Cinnamon Bark [Cinnamon] 1,000 mg PO DAILY Acetaminophen [Tylenol Arthritis] 650 - 1,300 mg PO DIRECTED PRN PRN Reason: Pain Ascorbic Acid [Vitamin C] 1,000 mg PO DAILY Multivitamins, Thera [Multivitamin (formulary)] 1 tab PO DAILY Ferrous Sulfate [Feosol] 325 mg PO DAILY Potassium Chloride ER [K-Dur 10] 10 meq PO Q48H Cyanocobalamin [Vitamin B-12] 500 mcg PO DAILY Cholecalciferol (Vitamin D3) [Vitamin D3 (125 MCG = 5,000 IU)] 125 mcg PO DAILY glipiZIDE [Glucotrol] 10 mg PO BID metFORMIN HCL 1,000 mg PO BID metFORMIN HCL 500 mg PO 1200 hydroCHLOROthiazide 25 mg PO QAM Ubidecarenone [Co Q-10] 100 mg PO DAILY Semaglutide [Ozempic] 1 mg SQ WE Omeprazole 20 mg PO BID Magnesium 400 mg PO HS Calcium Carbonate/Vitamin D3 [Calcium 600-Vit D3 10 mcg (400 Iu)] 0.5 each PO Q72H Atorvastatin Calcium 20 mg PO HS Aspirin [Adult Low Dose Aspirin EC] 81 mg PO HS Loperamide [Imodium] 2 mg PO DIRECTED PRN PRN Reason: Diarrhea Discharge Medication List Acetaminophen [Tylenol Arthritis] 650 - 1,300 mg PO DIRECTED PRN 04/26/24 [History] Ascorbic Acid [Vitamin C] 1,000 mg PO DAILY 04/26/24 [History] Aspirin [Adult Low Dose Aspirin EC] 81 mg PO HS 04/26/24 [History] Atorvastatin Calcium 20 mg PO HS 04/26/24 [History] Calcium Carbonate/Vitamin D3 [Calcium 600-Vit D3 10 mcg (400 Iu)] 0.5 each PO Q72H 04/26/24 [History] Cholecalciferol (Vitamin D3) [Vitamin D3 (125 MCG = 5,000 IU)] 125 mcg PO DAILY 04/26/24 [History] Cinnamon Bark [Cinnamon] 1,000 mg PO DAILY 04/26/24 [History] Cyanocobalamin [Vitamin B-12] 500 mcg PO DAILY 04/26/24 [History] Ferrous Sulfate [Feosol] 325 mg PO DAILY 04/26/24 [History] Loperamide [Imodium] 2 mg PO DIRECTED PRN 04/26/24 [History] Losartan Potassium [Cozaar] 100 mg PO QAM 04/26/24 [History] Magnesium 400 mg PO HS 04/26/24 [History] Multivitamins, Thera [Multivitamin (formulary)] 1 tab PO DAILY 04/26/24 [History] Omeprazole 20 mg PO BID 04/26/24 [History] Potassium Chloride ER [K-Dur 10] 10 meq PO Q48H 04/26/24 [History] Semaglutide [Ozempic] 1 mg SQ WE 04/26/24 [History] Timolol (Unknown Dose) 1 drop BOTH EYES BID 04/26/24 [History] Ubidecarenone [Co Q-10] 100 mg PO DAILY 04/26/24 [History] amLODIPine BESYLATE 10 mg PO HS 04/26/24 [History] glipiZIDE [Glucotrol] 10 mg PO BID 04/26/24 [History] hydroCHLOROthiazide 25 mg PO QAM 04/26/24 [History] metFORMIN HCL 1,000 mg PO BID 04/26/24 [History] metFORMIN HCL 500 mg PO 1200 04/26/24 [History] Aspirin 81 mg PO BID #60 tab 05/02/24 [Rx] Diclofenac Sodium [Voltaren] 75 mg PO BID #60 tab 05/02/24 [Rx] Docusate [Colace] 100 mg PO BID #60 capsule 05/02/24 [Rx] Doxycycline Monohydrate 100 mg PO BID #28 cap 05/02/24 [Rx] HYDROcodone/APAP 5-325MG [[place] 5] 1 - 2 each PO Q6HR PRN #48 tab 05/02/24 [Rx] Ondansetron [Zofran] 4 mg PO Q6HR PRN #30 tab 05/02/24 [Rx] Follow up Appointment(s)/Referral(s): [facility] [[facility]STA[facility]] - As Needed Ashish Roldan MD [Medical Doctor] - 1 Week Activity/Diet/Wound Care/Special Instructions: [place] swing bed 1. Weight-bear as tolerated on your operative extremity unless instructed otherwise. Use a walker or other assistive device to ambulate. 2. Leave surgical dressing in place. If your dressing becomes saturated with blood, there is drainage, or the dressing becomes loose please contact the office. 3. It is okay to shower with your surgical dressing, but do not submerge in water (no hot tubs, bath's, swimming etc.) 4. Take your blood clot prevention medication as prescribed (aspirin, Eliquis, Xarelto, and Plavix are commonly prescribed medications for blood clot prevention) 5. While taking [place] or Percocet for pain take a stool softener (Ex: Colace) and drink lots of water. 6. Keep all follow-up appointments as scheduled. You will usually be seen in 1 -2 weeks following surgery. 7. Please contact the office with any questions or concerns [phone] Discharge Disposition: TRANSFER TO SNF/ECF
[2024-05-07 08:32] LABS: Basophils # (A) 0.08 X 10*3/uL (0.00-0.10); Basophils % (A) 0.8 %; Eosinophils # (A) 0.19 X 10*3/uL (0.04-0.35); Eosinophils % (A) 1.8 %; HCT 35.8 % (37.2-46.3); HGB 11.6 g/dL (12.0-15.0); Lymphocytes # (A) 2.77 X 10*3/uL (0.90-5.00); Lymphocytes % (A) 26.2 %; MCH 29.3 pg (27.0-32.0); MCHC 32.4 g/dL (32.0-37.0); MCV 90.4 FL (80.0-97.0); Mean Platelet Volume 10.8 FL (9.5-12.2); Monocytes # (A) 1.11 X 10*3/uL (0.20-1.00); Monocytes % (A) 10.5 %; NRBC Per 100 WBC 0 X 10*3/uL (0.00-0.01); Neutrophils # (A) 6.37 X 10*3/uL (1.80-7.70); Neutrophils % (A) 60.1 %; Platelet Count 263 X 10*3/uL (140-440); RBC 3.96 X 10*6/uL (4.10-5.20); RDW 14.6 % (11.5-14.5); WBC 10.58 X 10*3/uL (4.50-10.00)
[2024-05-07 09:16] LABS: BUN/Creat Ratio 25.75 Ratio (12.00-20.00); Blood Urea Nitrogen 20.6 mg/dL (9.0-27.0); Calcium 8.9 mg/dL (8.7-10.3); Carbon Dioxide 17.8 mmol/L (21.6-31.8); Chloride 100 mmol/L (96-109); Glucose 165 mg/dL (70-110); Potassium 3.8 mmol/L (3.5-5.5); Sodium 138 mmol/L (135-145)
[2024-05-07 11:23] LABS: Glucose,Whole Blood 151 mg/dL (70-110)
--- NOTE | 2024-05-08 02:02 | PN ---
PROGRESS NOTE A 73-year-old white female, status post osteoarthritis of right hip. Med rec was completed. Home medicines were adjusted. She is going to a rehab center status post right hip surgery. Continue with the current blood pressure medications, diuretics, diabetic medicines. Follow up later on. Prognosis guarded. Continue current treatment. MMODL / IJN: [id number] /
== END 2024-05-07 12:52 | DRG 470 ==
LOC: OR 09:51 → 4SSUR 14:45 → OR 05-03 10:29 → 4SSUR 05-03 10:29
PROVIDERS: ADMIT Orthopaedic Surgery; ATTEND Orthopaedic Surgery
PROC: 0SR903A Replacement of Right Hip Joint with Ceramic Synthetic Substitute, Uncemented, Open Approach (ICD-10-PCS; principal; 2024-05-02 12:00)
DX: M16.11 Unilateral primary osteoarthritis, right hip (principal); Z68.41 Body mass index [BMI] 40.0-44.9, adult; E66.01 Morbid (severe) obesity due to excess calories; E78.5 Hyperlipidemia, unspecified; E11.9 Type 2 diabetes mellitus without complications; R09.02 Hypoxemia; K21.9 Gastro-esophageal reflux disease without esophagitis; H91.90 Unspecified hearing loss, unspecified ear; I10 Essential (primary) hypertension; Z85.3 Personal history of malignant neoplasm of breast
CPT/HCPCS: 64447; 71045; 73501; 80048; 83036; 84132; 85025